=== PATIENT | female | born 1960 | race Caucasian/White ===

== ENCOUNTER → 2020-07-02 | Outpatient (CLI) | payer MEDICAID ==
--- NOTE | 2020-07-02 12:33 | RADIOLOGY REPORT (SQ) ---
EXAM DESCRIPTION: KNEE BILATERAL 1-2 VIEWS IMAGES COMPLETED DATE/TIME: 07/02/2020 11:14 am REASON FOR STUDY: (M25.569)PAIN IN UNSPECIFIED KNEE M25.569 PAIN IN UNSPECIFIED KNEE COMPARISON: None. NUMBER OF VIEWS: Two views. TECHNIQUE: AP and lateral standing bilateral knees. LIMITATIONS: None. FINDINGS: MINERALIZATION: Normal. RIGHT KNEE BONES: No acute fracture. No worrisome bone lesions. MEDIAL COMPARTMENT: No significant osteophytes. Narrowing of the joint space with mild subchondral sclerosis in the tibial plateau. No chondrocalcinosis. LATERAL COMPARTMENT: No significant osteophytes. No joint space narrowing. No chondrocalcinosis. PATELLOFEMORAL COMPARTMENT: Posterior patellar and trochlear osteophytes. Joint space narrowing. No chondrocalcinosis. LEFT KNEE BONES: No acute fracture. No worrisome bone lesions. MEDIAL COMPARTMENT: Small marginal osteophytes. Joint space narrowing. Subchondral sclerosis in th e tibial plateau. No chondrocalcinosis. LATERAL COMPARTMENT: Small marginal osteophytes. No joint space narrowing. No chondrocalcinosis. PATELLOFEMORAL COMPARTMENT: Patellar and trochlear osteophytes. Joint space narrowing. No chondr ocalcinosis. IMPRESSION: Degenerative joint disease in both knees, most prominent in the medial compartments and in the patellofemoral compartments. TECHNICAL DOCUMENTATION: JOB ID: [id number] [employer]- All Rights Reserved Reading location - IP/workstation name: [email or web address]
== END ==
LOC: RAD 10:44
DX: M17.0 Bilateral primary osteoarthritis of knee (principal)